=== PATIENT | female | born 1935 | race Asian ===

== ENCOUNTER 2016-11-06 09:31 | Outpatient (CLI) | payer OTHER ==
[~2016-11-06 09:31] MED LIST: AMLO5TAB PO; ASA LO-DOSE81 MG PO; ASCO500T18 PO; CALCIUM + D PO; DEMADEX20 MG PO; DIAZ2TAB PO; DICY20TA34 PO; FLUT0.05 NAS; LIBRAX1 CAP PO; MAGNESIUM1 TAB PO; MICARDIS H80 MG/25 M PO; MULTIVITAMI2 PO; NEXIUM40 M1 PO; NITR0.4S2 SL; POTASSIMIN75 MG PO; TIMOPTIC0.5 % OP; TIZA4TAB5 PO; VYTORIN1 TA2 PO; XALATAN0.005 % OP; [UNRECOGNIZED DRUG - CODE] PO; [UNRECOGNIZED DRUG - CODE] PO; [UNRECOGNIZED DRUG - OTHER] OR
== END 2016-11-06 19:11 | disposition home or self-care (01) ==
LOC: MAMMO 09:31
DX: Z12.31 Encounter for screening mammogram for malignant neoplasm of breast (principal)
CPT/HCPCS: G0202-TC

== ENCOUNTER 2016-11-16 11:13 | Outpatient (CLI) | payer OTHER ==
[2016-11-16 12:29] LABS: PLATELET COUNT 141 K/uL (152-353)
[2016-11-16 13:02] LABS: POTASSIUM 3.8 mmol/L (3.6-5.2); SODIUM 140 mmol/L (136-145)
== END 2016-11-16 20:50 | disposition home or self-care (01) ==
LOC: RAD 11:13
PROVIDERS: Family Medicine
DX: R05 Cough (principal); R07.9 Chest pain, unspecified; Z85.79 Personal history of other malignant neoplasms of lymphoid, hematopoietic and related tissues; D61.818 Other pancytopenia; K21.9 Gastro-esophageal reflux disease without esophagitis; N18.9 Chronic kidney disease, unspecified; Z79.899 Other long term (current) drug therapy
CPT/HCPCS: 36415; 80053; 81000; 82306; 82550; 83735; 84439; 84443; 84484; 85027; 93005

== ENCOUNTER 2016-12-17 16:01 | Inpatient (IN) | payer OTHER, BC ==
[~2016-12-17] VITALS: Ht 152.4 cm; Wt 79.8 kg
[2016-12-17 18:03] VITALS: BP 149/67; TEMP 102; Ht 152.4 cm; Wt 79.8 kg
[2016-12-17 18:05] LABS: PLATELET COUNT 117 K/uL (152-353)
--- NOTE | 2016-12-17 19:40 | NUR ---
1900 PT ALERT AND ORIENTED X 3. WHILE DOING ADMISSION PT SEEMS UNCERTAIN CONERNING HOME MEDS AND ALLERGIES. SPOKE WITH CATINA'S AND FAMILY CONCERNING ALLERGIES. MD INFORMED FAMILY INFORMED. PER FAMILY THEY HAVE NOTICED PT SLIGHTY CONFUSED OR "SLOWER THAN NORMAL" OVER LAST 3 DAYS
[2016-12-17 20:10] VITALS: BP 131/72; TEMP 98.7
[2016-12-18 00:25] VITALS: BP 140/72; TEMP 97.4
[2016-12-18] MEDS ORDERED: BISOPROL FUM10 MG PO (01:06)
[2016-12-18] MEDS ORDERED: [UNRECOGNIZED DRUG - OTHER] OR (01:25)
[2016-12-18] MEDS ORDERED: MAGNESIUM200 MG OR ×2 (01:30→01:32)
[2016-12-18] MEDS ORDERED: CETIRIZINE10 MG PO (01:43)
[2016-12-18] MEDS ORDERED: CARAFATE1 GM PO (01:47)
[2016-12-18 04:00] VITALS: BP 134/70; TEMP 97.4
--- NOTE | 2016-12-18 05:31 | NUR ---
12/18/16 0593 OUT OF BED TO RESTROOM GAIT STEADY BUT PT IS WEAK.ASSISTED TO BED PER PCT.CC
[2016-12-18 06:05] LABS: PLATELET COUNT 111 K/uL (152-353)
[2016-12-18 06:26] LABS: POTASSIUM 3.5 mmol/L (3.6-5.2)
[2016-12-18 07:25] VITALS: BP 156/83; TEMP 97.5
[2016-12-18 12:00] VITALS: BP 147/72; TEMP 97.7
[2016-12-18 15:42] VITALS: BP 149/82; TEMP 97.5
[2016-12-18 20:00] VITALS: BP 126/60; TEMP 98
[2016-12-19] VITALS: BP 141/71; TEMP 97.8
[2016-12-19 04:00] VITALS: BP 132/65; TEMP 98.2
[2016-12-19 06:13] LABS: PLATELET COUNT 118 K/uL (152-353)
[2016-12-19 06:21] LABS: POTASSIUM 3.4 mmol/L (3.6-5.2)
[2016-12-19 07:54] VITALS: BP 125/66; TEMP 98.6
[2016-12-19 12:00] VITALS: BP 132/71; TEMP 97.8
[2016-12-19 16:00] VITALS: BP 132/71; TEMP 97.8
[2016-12-19 19:54] VITALS: BP 145/67; TEMP 98.5
[2016-12-20] VITALS (7 sets, daily range): BP systolic 124–151; BP diastolic 58–74; TEMP 97.7–98.3
[2016-12-20 05:03] LABS: PLATELET COUNT 121 K/uL (152-353)
[2016-12-20 05:25] LABS: POTASSIUM 3.6 mmol/L (3.6-5.2)
--- NOTE | 2016-12-20 15:35 | NUR ---
1515-PT AMBULATING IN HALLWAY WITH VISITOR AT SIDE AND NAD.
[2016-12-21 04:00] VITALS: BP 136/63; TEMP 98
[2016-12-21 05:50] LABS: POTASSIUM 3.2 mmol/L (3.6-5.2)
[2016-12-21 06:06] LABS: PLATELET COUNT 118 K/uL (152-353)
[2016-12-21 08:00] VITALS: BP 147/81; TEMP 97.8
--- NOTE | 2016-12-21 13:15 | NUR ---
REVIEWED DISCHARGE INSTRUCTIONS WITH PATIENT AND FAMILY. IV REMOVED, BANDAID APPLIED. PATIENT VERBALIZED UNDERSTANDING OF ALL INSTRUCTIONS.
== END 2016-12-21 13:50 | disposition home or self-care (01) | DRG 178 ==
LOC: MED/SURG 16:01
PROVIDERS: Emergency Medicine; ADMIT Family Medicine
DX: J15.0 Pneumonia due to Klebsiella pneumoniae (principal); C90.00 Multiple myeloma not having achieved remission; I10 Essential (primary) hypertension; K21.9 Gastro-esophageal reflux disease without esophagitis; K58.8 Other irritable bowel syndrome
CPT/HCPCS: 36415; 80053; 81000; 83735; 85027; 87040; 87070; 87077; 87185; 87186; 87205; 93005; 94640; 94664; 94760; 96366; 96367; 96372; J0744; J1650; J1956; J2920

== ENCOUNTER 2017-05-09 17:36 | Outpatient (CLI) | payer OTHER, BC ==
[~2017-05-09 17:36] MED LIST changes: +BISOPROL FUM10 MG PO; +CARAFATE1 GM PO; +CETIRIZINE10 MG PO; +MAGNESIUM200 MG OR; +[UNRECOGNIZED DRUG - OTHER] OR
== END 2017-05-09 18:40 | disposition home or self-care (01) ==
LOC: LAB 17:36
DX: N39.0 Urinary tract infection, site not specified (principal); R31.9 Hematuria, unspecified
CPT/HCPCS: 81000; 87088

== ENCOUNTER 2017-05-17 08:31 | Outpatient (CLI) | payer OTHER, BC | END 2017-05-17 09:45 | disposition home or self-care (01) | LOC: CT 08:31 | DX: R22.1 Localized swelling, mass and lump, neck (principal) | CPT/HCPCS: 36415; 82565; 84520; Q9963 ==

== ENCOUNTER 2017-06-12 08:50 | Outpatient (CLI) | payer OTHER, BC ==
[2017-06-12 09:15] LABS: PLATELET COUNT 125 K/uL (152-353)
== END 2017-06-12 19:50 | disposition home or self-care (01) ==
LOC: LABW 08:50
PROVIDERS: Dermatology
DX: Z79.899 Other long term (current) drug therapy (principal); Z51.81 Encounter for therapeutic drug level monitoring
CPT/HCPCS: 36415; 80076; 82465; 84478; 85027

== ENCOUNTER 2017-06-24 11:27 | Outpatient (CLI) | payer OTHER, BC ==
[2017-06-24 12:22] LABS: PLATELET COUNT 172 K/uL (152-353)
[2017-06-24 12:49] LABS: POTASSIUM 3.9 mmol/L (3.6-5.2)
== END 2017-06-24 13:00 | disposition home or self-care (01) ==
LOC: LABW 11:27
PROVIDERS: Family Medicine
DX: I10 Essential (primary) hypertension (principal); E78.4 Other hyperlipidemia; Z85.79 Personal history of other malignant neoplasms of lymphoid, hematopoietic and related tissues
CPT/HCPCS: 36415; 80053; 85027; 93005

== ENCOUNTER 2017-11-18 10:15 | Outpatient (CLI) | payer OTHER | END 2017-11-18 19:40 | disposition home or self-care (01) | LOC: MAMMO 10:15 | DX: Z12.31 Encounter for screening mammogram for malignant neoplasm of breast (principal) ==

== ENCOUNTER 2017-11-27 12:11 | Outpatient (CLI) | payer OTHER | END 2017-11-28 04:42 | disposition home or self-care (01) | LOC: LABW 12:11 | DX: J02.9 Acute pharyngitis, unspecified (principal) | CPT/HCPCS: 87804 ==

== ENCOUNTER 2017-12-05 12:10 | Emergency (ER) | payer OTHER ==
[~2017-12-05] VITALS: Ht 162.6 cm; Wt 81.6 kg
[2017-12-05 13:02] LABS: PLATELET COUNT 212 K/uL (152-353)
[2017-12-05 13:08] LABS: POTASSIUM 3.5 mmol/L (3.6-5.2); SODIUM 139 mmol/L (136-145)
[2017-12-05 14:00] VITALS: BP 123/60; TEMP 98
== END 2017-12-05 14:00 | disposition home or self-care (01) ==
LOC: ED 12:10
PROVIDERS: Family Medicine
DX: R07.89 Other chest pain (principal); I16.0 Hypertensive urgency
CPT/HCPCS: 36415; 80053; 84484; 85027; 93005; 96365; 96375; 99284; J1170; J2405

== ENCOUNTER 2017-12-16 11:37 | Emergency (ER) | payer OTHER ==
[~2017-12-16] VITALS: Ht 162.6 cm; Wt 81.6 kg
[2017-12-16 11:45] VITALS: TEMP 98.4
[2017-12-16] MEDS ORDERED: ELIQUIS5 MG OR (12:03)
[2017-12-16 12:59] LABS: PLATELET COUNT 149 K/uL (152-353)
[2017-12-16 13:06] LABS: POTASSIUM 3.5 mmol/L (3.6-5.2)
[2017-12-16 14:03] VITALS: BP 138/64
== END 2017-12-16 14:03 | disposition home or self-care (01) ==
LOC: ED 11:37
PROVIDERS: Family Medicine
DX: M25.461 Effusion, right knee (principal); M17.11 Unilateral primary osteoarthritis, right knee
CPT/HCPCS: 36415; 80053; 85027; 96372; 99283; J1885

== ENCOUNTER 2018-01-21 02:42 | Emergency (ER) | payer OTHER ==
[~2018-01-21] VITALS: Ht 162.6 cm; Wt 80.7 kg
[~2018-01-21 02:42] MED LIST changes: +ELIQUIS5 MG OR
[2018-01-21] MEDS ORDERED: TIMOPTIC OCU0.5 % OP (03:21)
[2018-01-21] MEDS ORDERED: XALATAN0.005 % OP (03:21)
[2018-01-21] MEDS ORDERED: ESOMEPRAZOLE MA40 MG PO (03:22)
[2018-01-21] MEDS ORDERED: ENTECAVIR0.5 MG PO (03:23)
[2018-01-21] MEDS ORDERED: ACYCLOVIR800 MG PO (03:23)
[2018-01-21] MEDS ORDERED: OXYCODONE HCL E10 MG PO (03:24)
[2018-01-21] MEDS ORDERED: REVLIMID PO (03:28)
[2018-01-21] MEDS ORDERED: PREMARIN VAG (03:30)
[2018-01-21] MEDS ORDERED: VITAMIN D1000 UNIT PO (03:30)
[2018-01-21] MEDS ORDERED: [UNRECOGNIZED DRUG - OTHER] PO (03:31)
[2018-01-21] MEDS ORDERED: [UNRECOGNIZED DRUG - OTHER] PO (03:33)
[2018-01-21] MEDS ORDERED: VITAMIN D3400 UNI2 PO (03:33)
[2018-01-21] MEDS ORDERED: STOOL SOFTNR100 MG PO (03:34)
[2018-01-21] MEDS ORDERED: B12 FAST DIS5000 MCG PO (03:34)
[2018-01-21 05:01] VITALS: BP 126/57; TEMP 98.3
== END 2018-01-21 05:04 | disposition short-term general hospital (02) ==
LOC: ED 02:42
DX: T82.128A Displacement of other cardiac electronic device, initial encounter (principal)
CPT/HCPCS: 36415; 99284

== ENCOUNTER 2018-02-04 09:35 | Outpatient (CLI) | payer OTHER ==
[~2018-02-04 09:35] MED LIST changes: +ACYCLOVIR800 MG PO; +B12 FAST DIS5000 MCG PO; +ENTECAVIR0.5 MG PO; +ESOMEPRAZOLE MA40 MG PO; +OXYCODONE HCL E10 MG PO; +PREMARIN VAG; +REVLIMID PO; +STOOL SOFTNR100 MG PO; +TIMOPTIC OCU0.5 % OP; +VITAMIN D1000 UNIT PO; +VITAMIN D3400 UNI2 PO; +[UNRECOGNIZED DRUG - OTHER] PO; +[UNRECOGNIZED DRUG - OTHER] PO
[2018-02-04 10:24] LABS: POTASSIUM 3.4 mmol/L (3.6-5.2)
== END 2018-02-04 21:56 | disposition home or self-care (01) ==
LOC: LABW 09:35
PROVIDERS: Specialist
DX: I10 Essential (primary) hypertension (principal); E78.4 Other hyperlipidemia; I49.5 Sick sinus syndrome; Z95.0 Presence of cardiac pacemaker; Z79.899 Other long term (current) drug therapy; Z51.81 Encounter for therapeutic drug level monitoring
CPT/HCPCS: 36415; 80053; 80061

== ENCOUNTER 2018-05-09 08:47 | Outpatient (CLI) | payer OTHER | END 2018-05-09 22:02 | disposition home or self-care (01) | LOC: CT 08:47 | DX: R10.2 Pelvic and perineal pain (principal) | CPT/HCPCS: 36415; 82565; 84520; Q9963 ==

== ENCOUNTER 2018-07-12 00:29 | Emergency (ER) | payer OTHER ==
[~2018-07-12] VITALS: Ht 162.6 cm; Wt 79.4 kg
[2018-07-12 01:43] VITALS: BP 158/43; TEMP 98.1
== END 2018-07-12 01:43 | disposition home or self-care (01) ==
LOC: ED 00:29
DX: S00.03XA Contusion of scalp, initial encounter (principal); W22.8XXA Striking against or struck by other objects, initial encounter; Y93.89 Activity, other specified; Y92.018 Other place in single-family (private) house as the place of occurrence of the external cause
CPT/HCPCS: 99283

== ENCOUNTER 2018-09-12 09:53 | Outpatient (CLI) | payer OTHER | END 2018-09-12 19:16 | disposition home or self-care (01) | LOC: LABW 09:53 | DX: C90.01 Multiple myeloma in remission (principal) | CPT/HCPCS: 36415; 80076; 87517 ==

== ENCOUNTER 2018-10-15 09:51 | Outpatient (CLI) | payer OTHER | END 2018-10-15 19:21 | disposition home or self-care (01) | LOC: LABW 09:51 | PROVIDERS: Family Medicine | DX: Z13.1 Encounter for screening for diabetes mellitus (principal); Z79.899 Other long term (current) drug therapy | CPT/HCPCS: 36415; 80061; 83036 ==

== ENCOUNTER 2018-11-21 08:46 | Outpatient (CLI) | payer OTHER | END 2018-11-21 18:56 | disposition home or self-care (01) | LOC: MAMMO 08:46 | DX: Z12.31 Encounter for screening mammogram for malignant neoplasm of breast (principal) ==

== ENCOUNTER 2018-12-11 16:09 | Outpatient (CLI) | payer OTHER | END 2018-12-11 20:44 | disposition home or self-care (01) | LOC: LABW 16:09 | DX: N39.0 Urinary tract infection, site not specified (principal) | CPT/HCPCS: 81000; 87088 ==

== ENCOUNTER 2019-05-11 09:57 | Outpatient (CLI) | payer OTHER ==
[2019-05-11 10:57] LABS: POTASSIUM 4.3 mmol/L (3.6-5.2)
== END 2019-05-11 22:46 | disposition home or self-care (01) ==
LOC: LABW 09:57
PROVIDERS: Specialist
DX: I10 Essential (primary) hypertension (principal); E78.49 Other hyperlipidemia; I48.91 Unspecified atrial fibrillation; Z95.0 Presence of cardiac pacemaker; Z79.899 Other long term (current) drug therapy
CPT/HCPCS: 36415; 80053; 80061; 83735

== ENCOUNTER 2019-05-19 08:32 | Outpatient (CLI) | payer OTHER | END 2019-05-19 22:25 | disposition home or self-care (01) | LOC: RAD 08:32 | DX: M54.5 Low back pain (principal); R10.2 Pelvic and perineal pain | CPT/HCPCS: 81000 ==

== ENCOUNTER 2019-06-12 12:31 | Outpatient (CLI) | payer OTHER | END 2019-06-12 23:59 | disposition home or self-care (01) | LOC: RAD 12:31 | DX: M25.512 Pain in left shoulder (principal) ==

== ENCOUNTER 2019-07-13 20:55 | Emergency (ER) | payer OTHER | END 2019-07-13 21:01 | disposition home or self-care (01) | LOC: ED 20:55 | DX: S09.8XXA Other specified injuries of head, initial encounter (principal); S00.03XA Contusion of scalp, initial encounter; W20.8XXA Other cause of strike by thrown, projected or falling object, initial encounter; Y93.E9 Activity, other interior property and clothing maintenance; Y92.098 Other place in other non-institutional residence as the place of occurrence of the external cause | CPT/HCPCS: 99281 ==

== ENCOUNTER 2019-08-10 | Emergency (ER) | payer OTHER ==
[~2019-08-10] VITALS: Ht 162.6 cm; Wt 81.6 kg
[2019-08-10 01:10] VITALS: BP 167/63; TEMP 97.5
== END 2019-08-10 01:10 | disposition home or self-care (01) ==
LOC: ED
DX: H65.191 Other acute nonsuppurative otitis media, right ear (principal); H92.01 Otalgia, right ear; Z98.890 Other specified postprocedural states
CPT/HCPCS: 93005; 96372; 99283; J0696; J1885

== ENCOUNTER 2019-09-30 17:11 | Outpatient (CLI) | payer OTHER | END 2019-09-30 19:31 | disposition home or self-care (01) | LOC: RAD 17:11 | DX: J02.9 Acute pharyngitis, unspecified (principal); R05 Cough; R07.81 Pleurodynia ==

== ENCOUNTER 2019-10-15 12:34 | Emergency (ER) | payer OTHER ==
[~2019-10-15] VITALS: Ht 162.6 cm; Wt 81.6 kg
[2019-10-15 12:46] VITALS: TEMP 97.7
[2019-10-15 13:52] VITALS: BP 122/50
== END 2019-10-15 13:52 | disposition home or self-care (01) ==
LOC: ED 12:34
DX: J06.9 Acute upper respiratory infection, unspecified (principal)
CPT/HCPCS: 99282

== ENCOUNTER 2019-11-27 10:16 | Outpatient (CLI) | payer OTHER | END 2019-11-27 19:39 | disposition home or self-care (01) | LOC: MAMMO 10:16 | DX: Z12.31 Encounter for screening mammogram for malignant neoplasm of breast (principal) ==

== ENCOUNTER 2020-01-11 11:19 | Emergency (ER) | payer OTHER ==
[~2020-01-11] VITALS: Ht 162.6 cm; Wt 81.6 kg
[2020-01-11 11:19] VITALS: TEMP 98.4
[~2020-01-11 11:19] MED LIST changes: -AMLO5TAB PO; +AMLODIPINE BESYLATE PO
[2020-01-11 12:19] LABS: PLATELET COUNT 137 K/uL (152-353)
[2020-01-11 12:30] LABS: POTASSIUM 4.1 mmol/L (3.6-5.2); SODIUM 141 mmol/L (136-145)
[2020-01-11 15:20] VITALS: BP 1335/59
== END 2020-01-11 16:00 | disposition home or self-care (01) ==
LOC: ED 11:19
PROVIDERS: Emergency Medicine
DX: R07.89 Other chest pain (principal); Z95.0 Presence of cardiac pacemaker
CPT/HCPCS: 80053; 82150; 83690; 83880; 84484; 85027; 93005; 99284

== ENCOUNTER 2020-03-29 14:48 | Outpatient (CLI) | payer OTHER | END 2020-03-29 19:14 | disposition home or self-care (01) | LOC: RESP 14:48 | DX: Z01.818 Encounter for other preprocedural examination (principal) | CPT/HCPCS: 93005 ==

== ENCOUNTER 2020-05-05 12:32 | Outpatient (CLI) | payer OTHER ==
[2020-05-05 14:36] LABS: POTASSIUM 4.4 mmol/L (3.6-5.2)
== END 2020-05-05 21:53 | disposition home or self-care (01) ==
LOC: LABW 12:32
PROVIDERS: Family Medicine
DX: M25.519 Pain in unspecified shoulder (principal); N18.3 Chronic kidney disease, stage 3 (moderate); E83.42 Hypomagnesemia
CPT/HCPCS: 36415; 80053; 83735

== ENCOUNTER 2020-05-18 10:58 | Outpatient (CLI) | payer OTHER ==
[2020-05-18 11:41] LABS: POTASSIUM 4.6 mmol/L (3.6-5.2)
== END 2020-05-18 19:04 | disposition home or self-care (01) ==
LOC: LABW 10:58
PROVIDERS: Family Medicine
DX: Z01.818 Encounter for other preprocedural examination (principal); I10 Essential (primary) hypertension; R42 Dizziness and giddiness
CPT/HCPCS: 36415; 80048

== ENCOUNTER 2020-11-24 15:49 | Outpatient (CLI) | payer OTHER | END 2020-11-24 23:50 | disposition home or self-care (01) | LOC: US 15:49 | PROVIDERS: ATTEND Family Medicine | DX: M79.604 Pain in right leg (principal) ==

== ENCOUNTER 2021-01-02 09:35 | Outpatient (CLI) | payer OTHER ==
[2021-01-02 09:57] LABS: PLATELET COUNT 208 K/uL (152-353)
[2021-01-02 10:00] LABS: POTASSIUM 3.8 mmol/L (3.6-5.2)
== END 2021-01-02 19:19 | disposition home or self-care (01) ==
LOC: LABW 09:35
PROVIDERS: ATTEND Internal Medicine Hematology & Oncology
DX: C90.00 Multiple myeloma not having achieved remission (principal)
CPT/HCPCS: 36415; 80053; 83735; 85027

== ENCOUNTER 2021-01-06 09:40 | Outpatient (CLI) | payer OTHER | END 2021-01-06 21:37 | disposition home or self-care (01) | LOC: MAMMO 09:40 | PROVIDERS: ATTEND Obstetrics & Gynecology | DX: Z12.31 Encounter for screening mammogram for malignant neoplasm of breast (principal) ==

== ENCOUNTER 2021-01-16 09:35 | Outpatient (CLI) | payer OTHER ==
[2021-01-16 10:05] LABS: PLATELET COUNT 166 K/uL (152-353)
== END 2021-01-16 20:45 | disposition home or self-care (01) ==
LOC: LABW 09:35
PROVIDERS: ATTEND Internal Medicine Hematology & Oncology
DX: C90.00 Multiple myeloma not having achieved remission (principal); N18.32 Chronic kidney disease, stage 3b; I12.9 Hypertensive chronic kidney disease with stage 1 through stage 4 chronic kidney disease, or unspecified chronic kidney disease; D63.1 Anemia in chronic kidney disease; N25.81 Secondary hyperparathyroidism of renal origin; E78.49 Other hyperlipidemia; K21.9 Gastro-esophageal reflux disease without esophagitis; H40.9 Unspecified glaucoma; J30.9 Allergic rhinitis, unspecified; I25.10 Atherosclerotic heart disease of native coronary artery without angina pectoris; F41.9 Anxiety disorder, unspecified; M19.90 Unspecified osteoarthritis, unspecified site; M81.0 Age-related osteoporosis without current pathological fracture; I48.91 Unspecified atrial fibrillation; Z79.899 Other long term (current) drug therapy
CPT/HCPCS: 36415; 80053; 80061; 82306; 82728; 83540; 83735; 83970; 84100; 85027

== ENCOUNTER 2021-01-30 09:32 | Outpatient (CLI) | payer OTHER ==
[2021-01-30 09:46] LABS: PLATELET COUNT 158 K/uL (152-353)
[2021-01-30 10:00] LABS: POTASSIUM 4.1 mmol/L (3.6-5.2)
== END 2021-01-30 19:19 | disposition home or self-care (01) ==
LOC: LABW 09:32
PROVIDERS: ATTEND Internal Medicine Hematology & Oncology
DX: C90.00 Multiple myeloma not having achieved remission (principal)
CPT/HCPCS: 36415; 80053; 83735; 85027

== ENCOUNTER 2021-02-22 08:44 | Outpatient (CLI) | payer OTHER | END 2021-02-22 21:48 | disposition home or self-care (01) | LOC: CT 08:44 | PROVIDERS: ATTEND Internal Medicine Gastroenterology | DX: R10.84 Generalized abdominal pain (principal) ==

== ENCOUNTER 2021-02-27 08:48 | Outpatient (CLI) | payer OTHER ==
[2021-02-27 09:10] LABS: PLATELET COUNT 148 K/uL (152-353)
[2021-02-27 09:32] LABS: POTASSIUM 3.5 mmol/L (3.6-5.2)
== END 2021-02-27 19:14 | disposition home or self-care (01) ==
LOC: LABW 08:48
PROVIDERS: ATTEND Internal Medicine Hematology & Oncology
DX: C90.00 Multiple myeloma not having achieved remission (principal)
CPT/HCPCS: 36415; 80053; 83735; 85027

== ENCOUNTER 2021-03-20 09:40 | Outpatient (CLI) | payer OTHER ==
[2021-03-20 09:59] LABS: PLATELET COUNT 146 K/uL (152-353)
[2021-03-20 10:04] LABS: POTASSIUM 4.7 mmol/L (3.6-5.2)
== END 2021-03-20 20:57 | disposition home or self-care (01) ==
LOC: LABW 09:40
PROVIDERS: ATTEND Internal Medicine Hematology & Oncology
DX: C90.00 Multiple myeloma not having achieved remission (principal)
CPT/HCPCS: 36415; 80053; 83735; 85027

== ENCOUNTER 2021-03-27 08:09 | Outpatient (CLI) | payer OTHER ==
[2021-03-27 08:29] LABS: PLATELET COUNT 155 K/uL (152-353)
[2021-03-27 08:45] LABS: POTASSIUM 3.6 mmol/L (3.6-5.2)
== END 2021-03-27 18:59 | disposition home or self-care (01) ==
LOC: LABW 08:09
PROVIDERS: ATTEND Internal Medicine Hematology & Oncology
DX: C90.00 Multiple myeloma not having achieved remission (principal)
CPT/HCPCS: 36415; 80053; 83735; 85027

== ENCOUNTER 2021-04-03 17:02 | Outpatient (CLI) | payer OTHER | END 2021-04-03 21:53 | disposition home or self-care (01) | LOC: LABW 17:02 | PROVIDERS: ATTEND Internal Medicine Gastroenterology | DX: C90.00 Multiple myeloma not having achieved remission (principal) | CPT/HCPCS: 36415; 80076; 82105; 86317; 87340; 87517 ==

== ENCOUNTER 2021-05-22 11:41 | Outpatient (CLI) | payer OTHER ==
[2021-05-22 12:50] LABS: PLATELET COUNT 155 K/uL (152-353)
[2021-05-22 12:59] LABS: POTASSIUM 3.9 mmol/L (3.6-5.2)
== END 2021-05-22 21:03 | disposition home or self-care (01) ==
LOC: LABW 11:41
PROVIDERS: ATTEND Internal Medicine Hematology & Oncology
DX: C90.00 Multiple myeloma not having achieved remission (principal)
CPT/HCPCS: 36415; 80053; 83735; 85027

== ENCOUNTER 2021-05-29 16:52 | Observation (INO) | payer OTHER ==
[~2021-05-29] VITALS: Ht 162.6 cm; Wt 83.5 kg
[2021-05-29] MEDS ORDERED: ACYCLOVIR800 MG PO (17:27)
[2021-05-29] MEDS ORDERED: VIT C/BIOFLV1000 MG PO (17:29)
[2021-05-29] MEDS ORDERED: LUMITENE30 MG PO (17:31)
[2021-05-29 17:35] LABS: PLATELET COUNT 153 K/uL (152-353)
[2021-05-29] MEDS ORDERED: [UNRECOGNIZED DRUG - OTHER] PO (17:36)
[2021-05-29] MEDS ORDERED: ENTECAVIR0.5 MG PO (17:37)
[2021-05-29] MEDS ORDERED: OXYC10TA3 PO (17:40)
[2021-05-29] MEDS ORDERED: FURO20TA67 PO (17:45)
[2021-05-29] MEDS ORDERED: POTASSIU PO (17:45)
[2021-05-29] MEDS ORDERED: DEXAMETHASON4 MG PO (17:47)
[2021-05-29] MEDS ORDERED: CARAFATE1 GM PO (17:48)
[2021-05-29] MEDS ORDERED: CENTRUM SILVER PO (17:48)
[2021-05-29] MEDS ORDERED: CALCI21 PO (17:49)
[2021-05-29] MEDS ORDERED: MIRALAX17 GM/SCOO PO (17:50)
[2021-05-29] MEDS ORDERED: EYE HEALTH1 CAP PO (17:51)
[2021-05-29 17:55] LABS: POTASSIUM 3.8 mmol/L (3.6-5.2); SODIUM 141 mmol/L (136-145)
[2021-05-29 19:05] VITALS: BP 137/42; TEMP 98.5; Ht 162.6 cm; Wt 83.5 kg
[2021-05-29] MEDS ORDERED: METO50TA63 PO (19:23)
[2021-05-29] MEDS ORDERED: DICYCLOMINE HYD10 MG PO (19:24)
[2021-05-29 20:00] VITALS: BP 132/54; TEMP 97.7
[2021-05-30 00:13] VITALS: BP 145/59; TEMP 97.9
[2021-05-30] MEDS ORDERED: STOOL SOFTNR100 MG PO (02:53)
[2021-05-30 04:00] VITALS: BP 125/50; TEMP 98.2
[2021-05-30] MEDS ORDERED: OXYC5TAB24 PO (04:12)
--- NOTE | 2021-05-30 06:34 | NUR ---
Pt alert sitting up on couch at this time. No c/o pain/discomfort voiced. SL to RAC flushed without difficulty. called @ 0230 with new orders. New orders followed through. Pt rested through the night with no c/o. No s/s of distress. Call light in easy reach.
[2021-05-30 08:00] VITALS: BP 159/67; TEMP 97.8
[2021-05-30] MEDS ORDERED: RETIN-A0.05 % EX (09:32)
[2021-05-30] MEDS ORDERED: LINZESS72 MCG PO (09:35)
[2021-05-30 09:42] LABS: PLATELET COUNT 166 K/uL (152-353)
--- NOTE | 2021-05-30 09:44 | NUR ---
NOTIFIED PHD RACHEL THAT PT'S HOME MED BOTTLES ARE IN MED ROOM ON THE COUNTER FOR THEM TO VERIFY.
[2021-05-30 09:53] LABS: POTASSIUM 3.3 mmol/L (3.6-5.2)
[2021-05-30 12:00] VITALS: BP 148/59; TEMP 98.2
[2021-05-30 16:00] VITALS: BP 132/51; TEMP 98.4
[2021-05-30 20:00] VITALS: BP 111/49; TEMP 98.1
[2021-05-31 00:16] VITALS: BP 137/52; TEMP 97.7
[2021-05-31 04:21] VITALS: BP 140/53; TEMP 97.9
[2021-05-31 04:52] LABS: PLATELET COUNT 145 K/uL (152-353)
[2021-05-31 05:24] LABS: POTASSIUM 2.9 mmol/L (3.6-5.2)
--- NOTE | 2021-05-31 05:59 | NUR ---
Pt rested through the night with no c/o. No s/s of distress. No SOB observed. Call light in easy reach.
[2021-05-31 08:00] VITALS: BP 108/60
[2021-05-31 12:21] VITALS: BP 137/64; TEMP 98.1
== END 2021-05-31 19:39 | disposition home or self-care (01) ==
LOC: MED/SURG 16:52
PROVIDERS: ADMIT Family Medicine; ATTEND Family Medicine
DX: R07.89 Other chest pain (principal); R00.2 Palpitations; R60.0 Localized edema; E87.6 Hypokalemia; E83.42 Hypomagnesemia; C90.02 Multiple myeloma in relapse; Z95.0 Presence of cardiac pacemaker; M25.562 Pain in left knee; I12.9 Hypertensive chronic kidney disease with stage 1 through stage 4 chronic kidney disease, or unspecified chronic kidney disease; N18.30 Chronic kidney disease, stage 3 unspecified
CPT/HCPCS: 36415; 80053; 81000; 82550; 83735; 83880; 84100; 84439; 84443; 84484; 85027; 87635; 93005; 96365; 96374; 96375; 99220; G0378; G0379; J1940; J3480; U0003

== ENCOUNTER 2021-06-19 09:29 | Outpatient (CLI) | payer OTHER ==
[~2021-06-19 09:29] MED LIST changes: +CALCI21 PO; +CENTRUM SILVER PO; +DEXAMETHASON4 MG PO; +DICYCLOMINE HYD10 MG PO; +EYE HEALTH1 CAP PO; +FURO20TA67 PO; +LINZESS72 MCG PO; +LUMITENE30 MG PO; +METO50TA63 PO; +MIRALAX17 GM/SCOO PO; +OXYC10TA3 PO; +OXYC5TAB24 PO; +POTASSIU PO; +RETIN-A0.05 % EX; +VIT C/BIOFLV1000 MG PO; +[UNRECOGNIZED DRUG - OTHER] PO
[2021-06-19 10:02] LABS: PLATELET COUNT 186 K/uL (152-353)
[2021-06-19 10:14] LABS: POTASSIUM 3.6 mmol/L (3.6-5.2)
== END 2021-06-19 21:44 | disposition home or self-care (01) ==
LOC: LABW 09:29
PROVIDERS: ATTEND Internal Medicine Hematology & Oncology
DX: C90.00 Multiple myeloma not having achieved remission (principal)
CPT/HCPCS: 36415; 80053; 83735; 85027

== ENCOUNTER 2021-07-17 12:43 | Outpatient (CLI) | payer OTHER ==
[2021-07-17 13:05] LABS: PLATELET COUNT 159 K/uL (152-353)
[2021-07-17 13:07] LABS: POTASSIUM 3.6 mmol/L (3.6-5.2)
== END 2021-07-17 20:15 | disposition home or self-care (01) ==
LOC: LABW 12:43
PROVIDERS: ATTEND Internal Medicine Hematology & Oncology
DX: C90.00 Multiple myeloma not having achieved remission (principal)
CPT/HCPCS: 36415; 80053; 83735; 85027

== ENCOUNTER 2021-07-31 12:52 | Outpatient (CLI) | payer OTHER | END 2021-07-31 21:09 | disposition home or self-care (01) | LOC: RAD 12:52 | PROVIDERS: ATTEND Family Medicine | DX: M54.2 Cervicalgia (principal) ==

== ENCOUNTER 2021-08-16 08:58 | Outpatient (CLI) | payer OTHER ==
[2021-08-16 09:21] LABS: PLATELET COUNT 185 K/uL (152-353)
[2021-08-16 09:30] LABS: POTASSIUM 4.1 mmol/L (3.6-5.2)
== END 2021-08-16 21:50 | disposition home or self-care (01) ==
LOC: LABW 08:58
PROVIDERS: ATTEND Internal Medicine Hematology & Oncology
DX: C90.00 Multiple myeloma not having achieved remission (principal)
CPT/HCPCS: 36415; 80053; 83735; 85027

== ENCOUNTER 2021-09-13 08:35 | Outpatient (CLI) | payer OTHER ==
[2021-09-13 08:51] LABS: PLATELET COUNT 188 K/uL (152-353)
[2021-09-13 09:06] LABS: POTASSIUM 4.2 mmol/L (3.6-5.2)
== END 2021-09-13 20:31 | disposition home or self-care (01) ==
LOC: LABW 08:35
PROVIDERS: ATTEND Internal Medicine Hematology & Oncology
DX: C90.00 Multiple myeloma not having achieved remission (principal)
CPT/HCPCS: 36415; 80053; 83735; 85027

== ENCOUNTER 2022-01-03 12:00 | Outpatient (CLI) | payer OTHER ==
[2022-01-03 12:31] LABS: PLATELET COUNT 150 K/uL (152-353)
[2022-01-03 13:06] LABS: POTASSIUM 4.1 mmol/L (3.6-5.2)
== END 2022-01-03 19:39 | disposition home or self-care (01) ==
LOC: LABW 12:00
PROVIDERS: ATTEND Family Medicine
DX: Z85.79 Personal history of other malignant neoplasms of lymphoid, hematopoietic and related tissues (principal); Z78.0 Asymptomatic menopausal state; N64.9 Disorder of breast, unspecified; C90.00 Multiple myeloma not having achieved remission
CPT/HCPCS: 36415; 80053; 83735; 85027; G0279

== ENCOUNTER 2022-02-10 15:49 | Inpatient (IN) | payer OTHER ==
[~2022-02-10] VITALS: Ht 152.4 cm; Wt 85.0 kg
[2022-02-10] VITALS (8 sets, daily range): BP systolic 133–170; BP diastolic 53–71; TEMP 100.4–101.1
[~2022-02-10 15:49] MED LIST changes: +MAGN400T4 PO; +METO100T37 PO; -METO50TA63 PO
[2022-02-10 17:02] LABS: PLATELET COUNT 166 K/uL (152-353)
[2022-02-10 17:08] LABS: POTASSIUM 3.2 mmol/L (3.6-5.2)
[2022-02-10 17:13] LABS: PARTIAL THROMBOPLASTIN TIME 22.7 SECONDS (24.5-33.6)
[2022-02-11 03:49] VITALS: BP 159/63; TEMP 100.3
[2022-02-11 06:47] VITALS: BP 139/51; TEMP 100.2; Ht 152.4 cm; Wt 85.0 kg
[2022-02-11 08:00] VITALS: BP 14/48; BP 146/48; TEMP 100.1
[2022-02-11 08:10] LABS: PLATELET COUNT 163 K/uL (152-353)
[2022-02-11 12:00] VITALS: BP 143/54; TEMP 100
[2022-02-11 16:00] VITALS: BP 144/42; TEMP 99
[2022-02-11] MEDS ORDERED: POMALYST PO (16:27)
[2022-02-11] MEDS ORDERED: POTASSIUM CHLORIDE PO (16:39)
[2022-02-11] MEDS ORDERED: DIFLORASONE TOP (16:43)
[2022-02-11] MEDS ORDERED: DIAZ5TAB20 PO (18:58)
[2022-02-11] MEDS ORDERED: TRAMADOL HYDROC50 MG PO (18:59)
[2022-02-11] MEDS ORDERED: DICYCLOMINE HYD10 MG PO (19:07)
[2022-02-11 20:00] VITALS: BP 122/68; TEMP 99.7
[2022-02-12] VITALS (9 sets, daily range): BP systolic 102–133; BP diastolic 54–69; TEMP 99.1–101.1
[2022-02-12 05:10] LABS: PLATELET COUNT 151 K/uL (152-353)
[2022-02-12 05:28] LABS: POTASSIUM 3.7 mmol/L (3.6-5.2)
[2022-02-13] VITALS (7 sets, daily range): BP systolic 122–152; BP diastolic 51–72; TEMP 96.1–99
[2022-02-13 05:28] LABS: PLATELET COUNT 156 K/uL (152-353)
[2022-02-13 05:39] LABS: POTASSIUM 3.7 mmol/L (3.6-5.2)
[2022-02-14 04:10] VITALS: BP 144/62; TEMP 97.5
[2022-02-14 05:19] LABS: PLATELET COUNT 145 K/uL (152-353)
[2022-02-14 05:35] LABS: POTASSIUM 3.2 mmol/L (3.6-5.2)
[2022-02-14 08:00] VITALS: BP 142/50; TEMP 98.7
[2022-02-14 12:00] VITALS: BP 136/93; TEMP 98.7
[2022-02-14 16:11] VITALS: BP 136/56; TEMP 99.4
[2022-02-14 20:00] VITALS: BP 110/59; TEMP 99.4
[2022-02-15] VITALS: BP 143/48; TEMP 98.8
[2022-02-15 04:00] VITALS: BP 155/59; TEMP 98.4
[2022-02-15 04:41] LABS: PLATELET COUNT 143 K/uL (152-353)
[2022-02-15 04:51] LABS: POTASSIUM 3.3 mmol/L (3.6-5.2)
[2022-02-15 08:00] VITALS: BP 146/60; TEMP 98.2
[2022-02-15 12:00] VITALS: BP 158/94; TEMP 98.7
[2022-02-15 16:00] VITALS: BP 129/60; TEMP 99
[2022-02-15 20:00] VITALS: BP 135/63; TEMP 98.6
[2022-02-16] VITALS: BP 140/65; TEMP 98.3
[2022-02-16 04:00] VITALS: BP 179/69; TEMP 97.9
[2022-02-16 05:09] LABS: PLATELET COUNT 178 K/uL (152-353)
[2022-02-16 05:37] LABS: POTASSIUM 4.7 mmol/L (3.6-5.2)
[2022-02-16 08:00] VITALS: BP 147/62; TEMP 98.5
[2022-02-16 11:58] VITALS: BP 141/60; TEMP 98.3
[2022-02-16] MEDS ORDERED: ZITHROMAX 250MG TAB PO (12:11)
[2022-02-16] MEDS ORDERED: DILT30TA24 PO (12:13)
[2022-02-16] MEDS ORDERED: LEVAQUIN 500MG TAB PO (12:14)
== END 2022-02-16 14:40 | disposition swing bed (61) | DRG 194 ==
LOC: ED 15:57 → MED/SURG 18:50
PROVIDERS: Family Medicine; Internal Medicine; ADMIT Internal Medicine Endocrinology, Diabetes & Metabolism; ATTEND Internal Medicine Endocrinology, Diabetes & Metabolism
DX: J18.0 Bronchopneumonia, unspecified organism (principal); C90.01 Multiple myeloma in remission; J81.1 Chronic pulmonary edema; I13.0 Hypertensive heart and chronic kidney disease with heart failure and stage 1 through stage 4 chronic kidney disease, or unspecified chronic kidney disease; R00.0 Tachycardia, unspecified; K21.9 Gastro-esophageal reflux disease without esophagitis; E87.6 Hypokalemia; R53.1 Weakness; R62.7 Adult failure to thrive; R26.89 Other abnormalities of gait and mobility; M81.8 Other osteoporosis without current pathological fracture; M15.8 Other polyosteoarthritis; N18.30 Chronic kidney disease, stage 3 unspecified; I50.9 Heart failure, unspecified
CPT/HCPCS: 36415; 51702; 80048; 80053; 80202; 80307; 81000; 82550; 83880; 84443; 84484; 85027; 85610; 85730; 87040; 87635; 93005; 94640; 94664; 94667; 94668; 94760; 96360; 96361; 96365; 96367; 96374; 96375; 99284; J0132; J0456; J0696; J1160; J1940; J3370; J3490; U0003

== ENCOUNTER 2022-02-16 15:08 | Inpatient (IN) | payer OTHER ==
[~2022-02-16] VITALS: Ht 152.4 cm; Wt 83.6 kg
[~2022-02-16 15:08] MED LIST changes: +DIAZ5TAB20 PO; +DIFLORASONE TOP; +DILT30TA24 PO; +LEVAQUIN 500MG TAB PO; +POMALYST PO; +POTASSIUM CHLORIDE PO; +TRAMADOL HYDROC50 MG PO; +ZITHROMAX 250MG TAB PO
[2022-02-16 16:20] VITALS: BP 141/60; TEMP 98.3; Ht 152.4 cm; Wt 83.6 kg
[2022-02-16 19:58] VITALS: BP 160/58; TEMP 98.1
[2022-02-17 07:59] VITALS: BP 130/89; TEMP 98.5
[2022-02-17 19:40] VITALS: BP 141/57; TEMP 98.5
[2022-02-18 08:28] VITALS: BP 135/49; TEMP 97.7
[2022-02-18 20:11] VITALS: BP 154/52; TEMP 98.5
[2022-02-19 08:00] VITALS: BP 126/49; TEMP 98.3
[2022-02-19 20:00] VITALS: BP 146/51; TEMP 99
[2022-02-20] MEDS ORDERED: DILT30TA24 PO (18:40)
[2022-02-20] MEDS ORDERED: FLUO10CA2 PO (18:41)
[2022-02-20 19:53] VITALS: BP 149/72; TEMP 98.8
[2022-02-21 08:36] VITALS: BP 143/53; TEMP 98.2
== END 2022-02-21 13:00 | disposition home health service (06) | DRG 194 ==
LOC: MED/SURG 15:08
PROVIDERS: ADMIT Internal Medicine; ATTEND Internal Medicine
DX: J18.0 Bronchopneumonia, unspecified organism (principal); I50.9 Heart failure, unspecified; T82.120D Displacement of cardiac electrode, subsequent encounter; N18.9 Chronic kidney disease, unspecified; R26.81 Unsteadiness on feet; R26.2 Difficulty in walking, not elsewhere classified; M62.81 Muscle weakness (generalized); Z74.1 Need for assistance with personal care; D64.9 Anemia, unspecified; C90.00 Multiple myeloma not having achieved remission; I10 Essential (primary) hypertension; K58.9 Irritable bowel syndrome, unspecified; F33.8 Other recurrent depressive disorders
CPT/HCPCS: 87081; 94664; 94667; 94760; J1940

== ENCOUNTER 2022-03-09 09:28 | Outpatient (CLI) | payer OTHER ==
[~2022-03-09 09:28] MED LIST changes: +FLUO10CA2 PO
== END 2022-03-09 20:32 | disposition home or self-care (01) ==
LOC: CT 09:28
PROVIDERS: ATTEND Internal Medicine Hematology & Oncology
DX: M81.0 Age-related osteoporosis without current pathological fracture (principal); Z12.31 Encounter for screening mammogram for malignant neoplasm of breast; C90.00 Multiple myeloma not having achieved remission

== ENCOUNTER 2022-05-18 11:07 | Outpatient (CLI) | payer OTHER ==
[2022-05-18 11:41] LABS: POTASSIUM 4.1 mmol/L (3.6-5.2)
[2022-05-18 12:02] LABS: PLATELET COUNT 180 K/uL (152-353)
== END 2022-05-18 19:04 | disposition home or self-care (01) ==
LOC: LABW 11:07
PROVIDERS: ATTEND Family Medicine
DX: R60.0 Localized edema (principal); N18.30 Chronic kidney disease, stage 3 unspecified; E83.42 Hypomagnesemia; E78.2 Mixed hyperlipidemia; R73.9 Hyperglycemia, unspecified; R63.5 Abnormal weight gain; R06.09 Other forms of dyspnea
CPT/HCPCS: 36415; 80053; 80061; 81002; 83036; 83735; 83880; 84100; 84439; 84443; 84550; 85027

== ENCOUNTER 2022-05-21 16:12 | Inpatient (IN) | payer OTHER ==
[~2022-05-21] VITALS: Ht 165.1 cm; Wt 88.9 kg
[2022-05-21 16:15] VITALS: BP 135/45; TEMP 98.8
[2022-05-21 16:59] LABS: POTASSIUM 3.4 mmol/L (3.6-5.2)
--- NOTE | 2022-05-21 19:15 | NUR ---
PATIENT ADMITED TO ROOM FROM ER VIA STRETCHER. CLIENT NOTED WEAK AND RELUCTANT TO SPEAK. FAMILY AT BEDSIDE. FAMILY PROVIDED INFORMATION OF EVENTS LEADING TO ADMISSION. PERFORMED ASSESSMENT. CLEAR LUNG SOUNDS AUSCULTATED. APPLIED TELE MONITOR TO CLIENT. IV ACCESS NOTED 22G RAC. CLIENT STARTED CRYING AND SOBBING, INQUIRED TO THE NATURE, MS RAMOS STATED "I DON'T KNOW, JUST NOT RIGHT". ASKED IF SHE WAS IN PAIN. SHE SHOOK HER HEAD NO. CLIENT IS RESTING IN BED.
[2022-05-21 20:00] VITALS: BP 170/73; TEMP 99.9
--- NOTE | 2022-05-21 21:18 | NUR ---
NOTIFIED CLIENT OF GARCIA CATHETER ORDER. PER MD ORDER INSERTED 16FR GARCIA USING STERILE TECHNIQUE. INFLATED BLADDER BALLON 10ML OF SALINE. CLIENT TOLERATED PROCEDURE. CLIENT EXHIBITED CONFUSED BEHAVIOR, REORIENTED AND ASSURED CLIENT. BED EXIT ALARM SET.
[2022-05-21 21:35] VITALS: BP 170/73; TEMP 99.9; Ht 165.1 cm; Wt 88.9 kg
--- NOTE | 2022-05-21 23:54 | NUR ---
@ [address] STUART TO NOTIFY THAT CLIENT WOULD NOT TAKE MEDS BY MOUTH, CLIENT AWAKES TO NAME AND WOULD AGREE TO TAKE MEDS BUT WOULD NOT OPEN MOUTH TO TAKE MEDS. RECEIVED NEW ORDERS FROM . NOTIFIED MD OF 100.7 TEMP, IV TYLENOL ORDER RECEIVED.
[2022-05-22] VITALS (7 sets, daily range): BP systolic 115–154; BP diastolic 38–64; TEMP 98.8–102.5
--- NOTE | 2022-05-22 01:42 | NUR ---
TEMP 99.6 AFTER TYLENOL INFUSED
--- NOTE | 2022-05-22 04:10 | NUR ---
EARLIER IN THE MORING, CLIENT'S IV PUMP ALARMING DUE TO CLIENT CLENCHING ARM UP TO CHEST AND WOULD NOT RELAX ARM DOWN BY SIDE CAUSING THE IV CATHETER TO OCCLUDE. AFTER EXPLAINING AND EDUCATING CLIENT THROUGHOUT THE MORNING HOURS, CLIENT NOW IS MORE RECEPTIVE TO TREATMENT, AND MORE ALERT AND RESPONSIVE TO TEACHING.
[2022-05-22 05:50] LABS: PLATELET COUNT 162 K/uL (152-353)
--- NOTE | 2022-05-22 08:31 | NUR ---
PT AWAKE BUT CONFUSED. BREAKFAST FED TO PT BY TECH AND PT WOULD SPIT FOOD OUT OF MOUTH INTO PAPER TOWEL. ADMINISTERED TYLENOL IV ORDERED FOR DDJE=[id number]. AM MEDS ADMINISTERED ORDERED, CRUSHED AND PLACED IN APPLESAUCE AND PT TOLERATED WELL, COOPERATIVE AND DID NOT SPIT MED OUT. CONTINUE TO MONITOR.
--- NOTE | 2022-05-22 11:32 | NUR ---
PT AWAKE AND FAMILY AT BEDSIDE. WILL SMILE AND LAUGH, NO VERBAL FEEDBACK NOTED. NAD NOTED. CONTINUE TO MONITOR.
--- NOTE | 2022-05-22 14:41 | NUR ---
PT CLIMBED OUT OF BED AND PULLED IV SITE OUT OF RAC. PT HAD A BOWEL MOVEMENT ALL OVER FLOOR AND HERSELF. ASSISTED PT TO SHOWER AND WHILE PT SITTING IN SHOWER CHAIR, THIS NURSE AND [facility] TECH GAVE PT A BATH. PT ALERT BUT CONFUSED. DIFFICULTY FOLLOWING VERBAL INSTRUCTIONS. PER PCP(NARCISO) PT IS ONLY ALLOWED TO HAVE ONE VISITOR AT A TIME R/T WBC LEVEL LOW. CALLED NIECE/CAREGIVER JULIO AND NOTIFIED HER OF THE PCP ORDERS FOR HER TO PASS ALONG TO OTHER FAMILY MEMBERS. PT IN BED RESTING QUIETLY WITH BED ALARM ON.
--- NOTE | 2022-05-22 17:42 | NUR ---
NEW IV SITE OBTAINED BY PERFECTO GABRIEL TO LEFT WRIST WITH A 24 GA X3 ATTEMPTS. IVF INFUSING AT 80 ML/HR ORDERED OF NS. NO SWELLING OR REDNESS NOTED TO SITE. SRINATH GARCIA AT BEDSIDE. ADMINISTERED PO KCL ORDERED, CRUSHED AND IN VANILLA PUDDING AND PT TOLERATED WELL. CONTINUE TO MONITOR.
--- NOTE | 2022-05-22 18:34 | NUR ---
RECHECKED PTS TEMP, AT [phone], AT 1830 IDMC=[id number] CHECKED WITH A DIFFERENT THERMOMETER, AXILLARY.CONTINUE TO MONITOR, NO MEDS ADMINISTERED AT THIS TIME FOR TEMP
--- NOTE | 2022-05-22 21:00 | NUR ---
CRUSHED MEDS AND PLACED THEM IN PUDDING. PREVIOUS SHIFT REPORTED THAT CLIENT TOOK MEDS IN THIS MANNER WITH NO DIFFICULTY. CLIENT TOOK ONE BITE HOWEVER WOULD NOT TAKE ANY MORE MEDS. PURSED LIPS TOGETHER AND WOULD NOT COOPERATE.
[2022-05-23] VITALS (8 sets, daily range): BP systolic 126–155; BP diastolic 39–54; TEMP 98.1–102.7
--- NOTE | 2022-05-23 00:10 | NUR ---
PATIENT TEMP AT 0000 VITAL SIGNS 102.7. REMOVED BLANKETS, LEAVING ONLY SHEET. PLACED COOL RAG ON FORHEAD. ADMINISTERED TYLENOL SEE DEC.
--- NOTE | 2022-05-23 01:30 | NUR ---
PT TEMP 99.9 AXILLARY. CONTINUED TO LEAVE BLANKET OFF OF CLIENT, SHEET ONLY.
--- NOTE | 2022-05-23 05:01 | NUR ---
PATIENT CALLED COMPOSITOR APPRENTICE LIGHT BUT DID NOT SAY ANYTHING WHEN ANSWERED, WHEN THIS NURSE GOES INTO ROOM CLIENT STATES THAT SHE NEEDS TO USE THE BATHROOM. CLIENT HAD ALREADY HAD A BM IN BRIEF. CLEANED CLIENT AND PROVIDED CATHETER CARE. APPLIED CLEAN BRIEF. BED EXIT ALARM SET.
--- NOTE | 2022-05-23 10:53 | NUR ---
Unable to add data left out during assessment so adding it to the note. Patient fell asleep on and off agian during assessment. Respirations even and unlabored. metorpolol held due to low heart rate and low blood pressure. dilatazem held based on parameters. bilateral edema in lower extremeties. 1+ pitting edema to right foot. Patient son in room visiting at this time.
--- NOTE | 2022-05-23 13:18 | NUR ---
DR STUART HERE AT THIS TIME.
[2022-05-23 13:52] LABS: PLATELET COUNT 154 K/uL (152-353)
[2022-05-23 14:03] LABS: POTASSIUM 2.5 mmol/L (3.6-5.2)
--- NOTE | 2022-05-23 15:40 | NUR ---
Dr. Borges called and updated on patient lab values for today. Dr. Borges notified patient BNP is elevated to 2630. Telephone orders per Dr. Gonzalez to decrease patients fluids to 50 mls/hr, continue daily weights and lasix read back and verified. orders in computer. will contimue to monitor patient.
--- NOTE | 2022-05-23 19:30 | NUR ---
PATIENT RESTING QUIETLY WATCHING TV AND VISITING WITH HER SON. NO ACUTE DISTRESS NOTED AT THIS TIME AND PATIENT DENIES ANY COMPLAINTS OR NEEDS AT THIS TIME. IV SITE 24G TO RIGHT WRIST CLEAN DRY AND INTACT AND HAS NORMAL SALINE INFUSING AT 50ML/HR. CALL LIGHT WITHIN REACH. WILL CONTINUE TO MONITOR.
--- NOTE | 2022-05-23 19:40 | NUR ---
RECEIVED A CALL FROM DR. STUART CHECKING ON PATIENT AND UPDATE WAS GIVEN. PATIENTS AM LABS FOR TODAY POTASSIUM LEVEL WAS AT 2.[address] STUART ORDERED KRIDER OF 20MEQ TO BE GIVEN TONIGHT AND ORDERS WERE WRITTEN AND FAXED TO [facility]. ALSO DR. STUART WANTING TO MAKE SURE THAT AM LABS WERE ORDERED FOR TOMORROW AM (05/24/2022) AND PLEASE CALL THEM TO HER AND I ASSURED HER I WOULD PASS THIS ON TO HER NURSE FOR DAY SHIFT IN THE AM. NO FURTHER ORDERS OR INSTRUCTIONS FROM DR. STUART AT THIS TIME.
--- NOTE | 2022-05-23 20:15 | NUR ---
NOTIFIED PER PCT WORKING THIS SHIFT THAT THIS PATIENT HAS A 101.5 ORAL TEMPERATURE SO I CALLED DR. STUART AT THIS TIME TO INFORM HER OF THIS AND ORDERS WERE GIVEN TO GIVE A ONE TIME DOSE OF LEVAQUIN 500MG IV TONIGHT, ORDERS [facility]ERE [facility] AND SENT TO [facility] TO PROFILE MEDS.
--- NOTE | 2022-05-23 22:31 | NUR ---
RECHECKED PATIENTS TEMPERATURE AFTER IV TYLENOL AND HER TEMPERATURE IS NOW 98.8 ORALLY AND PATIENT IS RESTING WITH HER EYES CLOSED AND DENIES ANY COMPLAINTS AT THIS TIME. CALL LIGHT WITHIN REACH. WILL CONTINUE TO MONITOR.
--- NOTE | 2022-05-24 01:14 | NUR ---
PATIENT REQUESTED TO GET UP TO [facility] FOR A BOWEL MOVEMENT. PATIENT ASSISTED BY MYSELF AND PATINA, PCT WITHOUT DIFFICULTY. PATIENT TOLERATED GETTING UP AND BACK TO BED VERY WELL. PATIENT HAD A LARGE LOOSE STOOL. PATIENT CLEANED WELL AND ASSISTED BACK TO BED. NO COMPLAINTS OR REQUESTS AT THIS TIME AND NO ACUTE DISTRESS NOTED AT THIS TIME. CALL LIGHT WITHIN REACH AND BED ALARM SET FOR SAFETY. WILL CONTINUE TO MONITOR.
--- NOTE | 2022-05-24 03:15 | NUR ---
PATIENT RESTING QUIETLY WITH HER EYES CLOSED. NO ACUTE DISTRESS NOTED AT THIS TIME. CALL LIGHT WITHIN REACH. WILL CONTINUE TO MONITOR.
[2022-05-24 04:00] VITALS: BP 145/62; TEMP 98.1
--- NOTE | 2022-05-24 05:15 | NUR ---
BED ALARM GOING OFF AND PATIENT ATTEMPTING TO GET UP ON THE BEDSIDE COMMODE STATING SHE HAD TO HAVE A BOWEL MOVEMENT. PATIENT ALREADY SAT DOWN ON THE BEDSIDE COMMODE WITH BRIEF ON. PATIENT DID HAVE ANOTHER MODERATE SIZE LOOSE BOWEL MOVEMENT. PATIENT CLEANED UP, NEW BRIEF APPLIED AND ASSISTED PATIENT BACK TO BED. PATIENT TOLERATED WELL. NO ACUTE DISTRESS NOTED AT THIS TIME. CALL LIGHT WITHIN REACH. BED ALARM ON FOR SAFETY. WILL CONTINUE TO MONITOR.
[2022-05-24 06:12] LABS: POTASSIUM 2.7 mmol/L (3.6-5.2)
[2022-05-24 06:53] LABS: PLATELET COUNT 147 K/uL (152-353)
--- NOTE | 2022-05-24 07:25 | NUR ---
REC'D PT RESTING IN BED. NO ACUTE DISTRESS NOTED. PT DENIED ANY CO AT THIS TIME. PT MUCH MORE ALERT TODAY WHEN COMPARED TO 05/23/22. IVF'S OF NS INFUSING VIA PUMP AT 50ML/HR INTO 22G INTO RT WRIST. WILL CONT TO MONITOR.
[2022-05-24 08:00] VITALS: BP 137/50; TEMP 99
--- NOTE | 2022-05-24 08:45 | NUR ---
DR STUART CALLED AND ASKED ABOUT LABS AND ELECTROLYTE PROTOCOL . ALL LABS REVIEWED VIA PHONE AND NEW ORDERS REC'D TO REPLACE POTASSIUM AND MAGNESIUM VIA ELECTROLYTE PROTOCOL. PT DID NOT HAVE TEMP THIS AM TEMP AT 0800 99. PT SITTING UP IN BED EATING BREAKFAST NO ACUTE DUSTRESS NOTED. WILL CONT TO MONITOR,.
--- NOTE | 2022-05-24 09:00 | NUR ---
AYSHA FROM THERAPY IN ROOM AT THIS TIME PERFORMING ALLIE
--- NOTE | 2022-05-24 09:22 | NUR ---
NEW ORDERS REC'D TO STOP LOVENOX AND RESTART PT'S HOME MEDS ELIQUIS 5MG TAB PO BID ORDERS WRITTEN AND NOTED
--- NOTE | 2022-05-24 10:00 | NUR ---
MICHAEL FROM THERAPY IN ROOM PERFORMING EVAUL PER MD ORDERS. PT UP TO SINK IN ROOM WITH MIN ASSISTANCE FROM PT. GAIT BELT IN USE FROM THERAPY. PT TOELRATING AMBUALTION IN ROOM WELL. PT BRUSHED HER TEETH ALONE WITH THERAPY AT HER SIDE AT THE SINK. PT THEN ASSISTED TO RECLINER AND DID WELL NO PROBLEMS. PER THERAPY PT WAS ASSISTED UP TO BSC PER THERAPY DURING SCREENING AND EVAUL. PT HAD LOOSE BM. AFTER PT WAS ASSITED UP TO RECLINER PT VOMITED X 1. PT HAD DRANK A LARGE BOTTLE OF WATER DURING THERAPY EVAUL IN ROOM AT PT'S REQUEST. PT DENIES ANY PROBLEMS OR PAIN. PT REC'D BATH AND BED LINENS CHANGED AT THIS TIME. PT ASSITED BACK TO BED FAMILY IN ROOM AT THIS TIME
[2022-05-24 12:00] VITALS: BP 145/61; TEMP 98.7
--- NOTE | 2022-05-24 12:43 | NUR ---
DR STUART HERE AT THIS TIME. IN ROOM WITH PT
--- NOTE | 2022-05-24 13:00 | NUR ---
DR STUART GAVE NEW ORDERS TO DC TEL AT THIS TIME.
[2022-05-24 16:00] VITALS: BP 142/68; TEMP 98.6
--- NOTE | 2022-05-24 16:20 | NUR ---
PT CALLED FOR ASSISTANCE TO BSC. FAMILY MEMEBER AT BS. PT ASSITED UP TO BSC PER STAFF X 1 PHYSICAL ASSIST. PT DID HAVE SMALL LOOSE STOOL AT THIS TIME. GARCIA CATH INTACT TO BS.
--- NOTE | 2022-05-24 17:00 | NUR ---
PT'S FAMILY BROUGHT FOOD IN AT THIS TIME. PT CONSUMED SOME FLOUDER AND SMALL HELPING OF COLESLAW. PT TOELRATED WELL NO MORE EPISODES OF VOMITING THIS SHIFT. FAMILY MEMEBER REMAINS AT BS. PT RESTING AT THIS TIME
--- NOTE | 2022-05-24 19:48 | NUR ---
PATIENT RESTING QUIETLY WATCHING TV AND ALERT AND ORIENTED AT THIS TIME. PATIENT SMILING NOW AND STATES "I AM FEELING BETTER!'". PATIENT HAS TWO IV SITES A 24G IN HER LEFT WRIST WHICH IS SALINE LOCKED AT THIS TIME AND A 22G IN HER RIGHT FOREARM WHICH CURRENTLY HAS NORMAL SALINE INFUSING AT 30 ML/HR AND A KRIDER OF 40MEQ/500 MLS OF NORMAL SALINE AT 100 ML/HR. AFTER POTASSIUM IS COMPLETED PATIENT WILL ONLY HAVE THE NORMAL SALINE AT 30ML/HR. FOR NOW AND ORDER PER DR. STUART IS IN HER CHART. PATIENT HAS INDWELLING GARCIA CATHETER TO BEDSIDE DRAINAGE AND ORDERS TO ATTEMPT BLADDER TRAINING TONIGHT DURING THIS SHIFT. PATIENT DENIES ANY COMPLAINTS AND OR REQUESTS AT THIS TIME AND PATIENT REMINDED HOW TO CALL FOR ASSISTANCE IF SHE NEEDS TO GET UP TO BEDSIDE COMMODE OR ANY OTHER REQUESTS OR NEEDS. PATIENT VERBALIZES UNDERSTANDING OF HOW TO USE CALL SYSTEM. CALL LIGHT WITHIN REACH. WILL CONTINUE TO MONITOR.
[2022-05-24 20:00] VITALS: BP 143/67; TEMP 99.3
--- NOTE | 2022-05-24 21:00 | NUR ---
PM MEDS CRUSHED AND GIVEN TO PATIENT WITH APPLESAUCE AND PATIENT TOLERATED THEM WELL. ASSISTED PATIENT TO DRINK DIET COKE AND SHE DID DRINK TWO SMALL CUPS OF DIET COKE WITHOUT DIFFICULTY. PATIENT STATES HER APPETITE IS GETTING BETTER AND SHE IS "FEELING BETTER EVERY DAY". CALL LIGHT WITHIN REACH. WILL CONTINUE TO MONITOR. GARCIA TUBING CLAMPED AND PATIENT INSTRUCTED TO CALL ME WHEN SHE FEELS LIKE SHE HAS TO URINATE AND PATIENT VERBALIZES UNDERSTANDING. WILL CONTINUE TO MONITOR.
--- NOTE | 2022-05-24 21:30 | NUR ---
PATIENT CALLED FOR ASSISTANCE TO BEDSIDE COMMODE. PATIENT IS DOING VERY WELL GETTING OUT OF THE BED AND ON TO BSC AND BACK TO BED WITH LITTLE ASSISTANCE FROM STAFF. PATIENT STATES SHE IS "GETTING HER STRENGTH BACK SOME". PATIENT HAS A LARGE WATERY BROWN STOOL AND STATES HER "STOMACH IS TORE UP" AND THAT THIS TYPE BOWEL MOVEMENT ISNT NORMAL FOR HER. WILL REPORT THIS TO DR. STUART. PATIENT DENIES ANY OTHER COMPLAINTS AT THIS TIME. WILL CONTINUE TO MONITOR.
--- NOTE | 2022-05-24 22:30 | NUR ---
PATIENT IS RESTING QUIETLY WITH HER EYES CLOSED AT THIS TIME. GARCIA CLAMP IS RELEASED DUE TO PATIENT NOT CALLING IN LAST COUPLE OF HOURS AND SHE WAS GIVEN A DOSE OF LASIX 20MG IV EARLIER. URINE NOTED TO FLOW INTO BAG AT THIS TIME AND GARCIA TUBING CLAMPED AGAIN AND PATIENT REMINDED TO PLEASE CALL ME IF SHE HAS THE SENSATION OF NEEDING TO VOID AND SHE VOICES UNDERSTANDING AT THIS TIME. WILL MONITOR.
[2022-05-25] VITALS: BP 160/64; TEMP 98.6
--- NOTE | 2022-05-25 00:30 | NUR ---
PATIENT CONTINUES TO REST WITH HER EYES CLOSED AND NO ACUTE DISTRESS NOTED AT THIS TIME. GARCIA TUBING RELEASED AGAIN AND PATIENT DENIES HAVING THE SENSATION AT ALL SO FAR THIS SHIFT. PATIENT AGAIN EDUCATED AND ENCOURAGED TO CALL ME IF SHE FEELS THE URGE TO VOID. PATIENT VERBALIZES SHE WILL. CALL LIGHT WITHIN REACH. WILL CONTINUE TO MONITOR.
--- NOTE | 2022-05-25 01:40 | NUR ---
PATIENT UP TO BSC AGAIN AND HAS A LARGE WATERY BROWN STOOL, PATIENT ASSISTED BACK TO BED AND CALL LIGHT WITHIN REACH. WILL CONTINUE TO MONITOR.
--- NOTE | 2022-05-25 02:15 | NUR ---
GARCIA TUBING UNCLAMPED AGAIN AND ALLOWED TO DRAIN INTO BEDSIDE BAG DUE TO PATIENT STILL DENYING ANY SENSATION OF NEEDING TO VOID. AFTER APPROXIMATELY FIVE MINUTES TUBING CALMPED AGAIN AND PATIENT ONCE AGAIN REMINDED TO CALL. WILL CONTINUE TO MONITOR. BED ALARM ON FOR SAFETY.
[2022-05-25 04:00] VITALS: BP 148/58; TEMP 98.9
--- NOTE | 2022-05-25 04:25 | NUR ---
PATIENT RESTING WITH HER EYES CLOSED, RESPIRATIONS EVEN AND NON LABORED AND IN NO ACUTE DISTRESS AT THIS TIME. GARCIA UNCLAMPED AT THIS TIME. PATIENT IS NOT FEELING THE SENSATION TO VOID OR JUST ISNT ALERTING STAFF AT ALL. NOT ONE TIME THIS SHIFT OF THIS TIME. PATIENT EDUCATED ONCE MORE ON WHY WE NEED HER TO LET US KNOW SO WE CAN DC THE GARCIA CATHETER AND PATIENT AGREES, VERBALIZES UNDERSTANDING WHENSTAFF SPEAKING WITH HER BUT DOESNT CALL. WILL CONTINUE TO MONITOR AND CONTINUE TO EDUCATE AND ENCOURAGE HER TO LET US KNOW.
[2022-05-25 05:05] LABS: POTASSIUM 2.8 mmol/L (3.6-5.2)
[2022-05-25 05:17] LABS: PLATELET COUNT 104 K/uL (152-353)
--- NOTE | 2022-05-25 06:10 | NUR ---
PATIENT UP TO BSC TO HAVE ANOTHER LARGE WATERY STOOL, ASSISTED BACK TO BED AND SAMPLE COLLECTED TO SEND TO LAB FOR STOOL STUDIES. CALL LIGHT WITHIN REACH. WILL CONTINUE TO MONITOR.
[2022-05-25 08:00] VITALS: BP 100/63; TEMP 98.2
--- NOTE | 2022-05-25 09:30 | NUR ---
SPOKE WITH REGARDING MEDICATIONS AND NEW ORDERS WERE GIVEN FOR ADDITIONAL LABS: IRON, TIBC AND FERRITIN - TO USE AM LABS. MED ORDER GIVEN FOR K-RIDER 40MEQ X1 AND INCREASE PO K+ TO 40 MEQ T.I.D LIQUID SUSPENSION. GIVE LEVAQUIN 500MG IV X1 DOSE NOW. ORDER FAXED TO PHARMACY.
[2022-05-25 12:08] VITALS: BP 106/69; TEMP 97.9
--- NOTE | 2022-05-25 12:34 | NUR ---
PT ALERT AND ORIENTED TO PERSON AND PLACE. IV SITES TO LEFT WRIST AND RFA INTACT. IVF OF NS INFUSING AT 30 ML/HR ORDERED TO RFA SITE. NO SWELLING OR REDNESS NOTED. ADMINISTERED AM MEDS ORDERED, CRUSHED AND IN APPLESAUCE AND PT TOLERATED WELL WITH NO DIFFICULTY SWALLOWING. PT ABLE TO FEED HERSELF AND ALERTS STAFF BY USING THE CALL LIGHT WHEN SHE HAS TO HAVE USE THE BEDSIDE COMMODE TO HAVE A BM, NOT CONTINENT OF WHEN SHE HAS TO VOID. GARCIA CATHETER D/C'D AT 0735, BLADDER TRAINING STARTED ON 7P=7A SHIFT. NAD NOTED. DENIES ANY PAIN/DISCOMFORT. GIVES LOGICAL VERBAL FEEDBACK. SRINATH GARCIA AT BEDSIDE. AMBULATES WITH A STEADY GAIT BUT UNBALANCED, ASSISTANCE NEEDED. CONTINUE TO MONITOR.
--- NOTE | 2022-05-25 14:41 | NUR ---
Patients grandson Shabbir requested to speak with proposal writer. He was wanting to know if home health could see his grandmother more often or if hospice would be better for her. tube trailer filler spoke with home [facility] and they gave information on [facility] home health that has sitters that some insurances pay for. Hazardous Substances Scientist passed along Harish contact information to then and spoke with Shabbir and his family and they are waiting for her call. Hazardous Substances Scientist also notified [facility] that patient will need to continue OT/PT services once discharged.
[2022-05-25 16:00] VITALS: BP 171/79; TEMP 98.9
--- NOTE | 2022-05-25 16:15 | NUR ---
PT CRYING AND TEARFUL, C/O IV KCL "BURNING" RIGHT ARM AT IV SITE. ASSESSED IV SITE AND SITE WAS INFILTRATED, NO REDNESS BUT MINIMUM SWELLING NOTED. D/C'D IV SITE TO RFA AND APPLIED COLD COMPRESS. ENCOURAGED AND COMFORTED PT. PCP ASSESSED PT AT BEDSIDE AFTER LUNCH. PT WILL BE DISCHARGED TO GO HOME IN AM PENDING STOOL CULTURE RESULTS. CONTINUES TO HAVE WATERY, GREENISH BM X3 TODAY. PCP OBSERVED PTS BM FROM MEASURING HAT IN TOILET. OCCULT STOOL SAMPLE WAS NEGATIVE AWAITING OTHER RESULTS. CONTINUE TO MONITOR.
--- NOTE | 2022-05-25 16:59 | NUR ---
JULIO BEAVERS AT BEDSIDE. PT FEEDING HERSELF DINNER. PT REQUEST TO TAKE A SHOWER AFTER DINNER. CONTINUE TO MONITOR.
--- NOTE | 2022-05-25 18:17 | NUR ---
NSG STAFF ASSISTED PT TO BEDSIDE COMMODE. STEADY GAIT, UNBALANCED. CONTINUES TO HAVE WATERY, BROWNISH STOOL X4 TODAY. NSG STAFF SUPERVISED AND PROVIDED LIMITED ASSISTANCE WHILE PT TOOK A SHOWER. CLEAR AND LOGICAL SPEECH. ALERT AND ORIENTED X3. NAD NOTED. NO CRYING OR TEARFULNESS NOTED. PT SMILING AND TALKING TO STAFF. PT STATES "WHAT DID YOU DO WITH MY BRACELETS THAT I HAD ON." REPLIED TO PT THAT BRACELETS WERE PLACED WITH HER PERSONAL BELONGINGS IN A BAG. PER PCP(NARCISO) D/C IVF AND PT IS TO REMAIN SALINE LOCK TO LEFT WRIST WITH 24 GA. OBTAIN POTASSIUM LEVEL X1 NOW PER PCP, DO NOT ORDER MORNING LABS. POTASSIUM LEVEL=3.4 @ 1755. CONTINUE TO MONITOR.
--- NOTE | 2022-05-25 19:50 | NUR ---
PT AWAKE LAYING IN BED WITH NO S/S OF PAIN OR DISTRESS NOTED, DENIES ANY PROBLEMS OR NEEDS, IV LOCK INTACT TO L WRIST, RESP RATE NONLABORED, LUNGS CLEAR, SKIN WARM AND DRY, BS+, RADIAL PULSES INTACT/EQUAL. ENCOURAGED TO CALL NEEDED, RAILS UP, BED IN LOW POSITION, CALL LIGHT IN REACH.
[2022-05-25 20:00] VITALS: BP 137/57; TEMP 99.1
--- NOTE | 2022-05-25 21:24 | NUR ---
PT AWAKE GIVEN MEDICATIONS CRUSHED IN APPLE SAUCE WITH NO PROBLEMS. WILL MONITOR CLOSELY.
--- NOTE | 2022-05-25 22:05 | NUR ---
SPOKE WITH DR. STUART OVER THE PHONE ABOUT PT'S IV SITE NOT WORKING(PT GOING HOME IN THE MORNING) AND UNABLE TO GIVE DOSE OF LASIX UNLESS IV IS RESTARTED. NEW ORDER FROM DR. STUART TO GIVE LASIX 20MG PO X 1 DOSE NOW(SINCE UNABLE TO GIVE IV DOSE). T.O. R&V DR. Samuel STUART/BRIELLE JEAN RN.
--- NOTE | 2022-05-25 22:48 | NUR ---
PT CALLED SANITARY ENGINEERING TEACHER LIGHT FOR ASSIST TO GO TO BSC. PT ASSISTED TO AND FROM BSC X 1 PERSON ASSIST MINIMAL ASSIST. PT TOLERATED WITH SOME WEAKNESS. BACK IN BED WITH NO ACUTE DISTRESS NOTED, WILL MONITOR, RAILS UP, BED IN LOW POSITION, CALL LIGHT IN REACH, BED ALARM ON.
[2022-05-26] VITALS: BP 131/58; TEMP 98.9
--- NOTE | 2022-05-26 00:05 | NUR ---
DR. STUART CALLED TO CHECK ON PT. POTASSIUM LEVEL AFTER PT GIVEN KCL TODAY GIVEN TO PER REQUEST RESULT 3.4. ALSO INFORMED BY THAT SHE WANTS PT TO HAVE DOSE OF ROBITUSSIN NOW FOR COUGH THAT PT C/O EARLIER TODAY. SPECIAL OFFICER HAS HEARD PT COUGH ONCE EARLIER IN SHIFT.
--- NOTE | 2022-05-26 00:15 | NUR ---
SENT FAX TO [facility] DUE TO SOME OF PT'S MEDS NOT PROFILED INCLUDING ROBITUSSIN.
--- NOTE | 2022-05-26 02:00 | NUR ---
PT RESTING IN BED WITH EYES CLOSED, NO S/S OF PAIN OR DISTRESS NOTED, RAILS UP X3, BED IN LOW POSITION WITH ALARM ON, CALL LIGHT IN REACH.
[2022-05-26 04:00] VITALS: BP 138/61; TEMP 98.3
--- NOTE | 2022-05-26 04:15 | NUR ---
RESTING WITH EYES CLOSED IN BED, NO S/S OF PAIN OR DISTRESS NOTED, WILL MONITOR CLOSELY, RAILS UP, BED IN LOW POSITION WITH ALARM ON, CALL LIGHT IN REACH.
--- NOTE | 2022-05-26 07:40 | NUR ---
PT ALERT AND ORIENTED X4. NAD NOTED. DENIES ANY PAIN/DISCOMFORT. PT HAS NO ACTIVE SITE. POSSIBLE DISCHARGE THIS AM. PT ANXIOUS TO GO HOME. CONTINUE TO MONITOR.
[2022-05-26 08:05] VITALS: BP 129/52; TEMP 98.2
--- NOTE | 2022-05-26 10:44 | NUR ---
PT DISCHARGED HOME PER PCP. ADMINISTERED AM MEDS ORDERED AND ONE TIME DOSE OF LASIX 20 MG PO. PT TOLERATED WELL, MEDS WERE NOT CRUSHED, PT TOOK MEDS WHOLE WITH NO DIFFICULTY SWALLOWING. ASSESSED BY PCP AT BEDSIDE. INFORMED JULIO BEAVERS TO CALL PCP OFFICE ON SATURDAY TO SCHEDULE ONE WEEK F/U APPOINTMENT PER PCP. DISCHARGE INSTRUCTIONS GIVEN TO PT AND NIECE AND BOTH VERBALIZED UNDERSTANDING OF INSTRUCTIONS. [facility] FILLED NEW PRESCRIPTION FOR LEVAQUIN, ROBITUSSIN,POTASSIUM AND LASIX, OTHER HOME MEDS PRESCRIBED [facility] STATED THAT PT HAD "PLENTY AT HOME." INFORMED JULIO BEAVERS AND PT THAT PAIN MED, OXYCODONE WAS CALLED IN TO [facility] BY PCP, NIMESH STATED "SHE HAS PLENTY OF THAT AT HOME." PT ED TO FAMILY AND PT THAT PT SHOULD USE INCENTIVE SPIROMETER 2-3 HOURS A DAY AND DEMONSTRATED CORRECT USE OF IS TO PT AND FAMILY. NEW MEDS FILLED BY [facility] GIVEN TO FAMILY. PT IS TO DRINK FLUIDS TO REPLACE ELECTROLYTE IMBALANCE AND KEEP HYDRATED, EX:BODY ARMOUR WITH LESS SUGAR. PT TRANSPORTED OUT OF FACILITY AT 1042 VIA WHEELCHAIR.
--- NOTE | 2022-05-29 11:59 | NUR ---
Gas Engine Mechanic following up with patient and to see if the company [employer] which we had discussed prior to discharge had made contact with them. He said that he had not heard from them. Gas Engine Mechanic called [employer] and was transferred back to [facility]. She said that she had called them and left a message and was awaiting his return call. She also said that sometimes they show up as spam and that could be the reason the family did not answer. Gas Engine Mechanic notified the patient and her family of the above and gave them [facility]'s number to call her.
== END 2022-05-26 10:40 | disposition home or self-care (01) | DRG 292 ==
LOC: ED 16:12 → MED/SURG 18:30 → UNDODEPER 05-23 19:15 → MED/SURG 05-26 10:40
PROVIDERS: Emergency Medicine Emergency Medical Services; ADMIT Family Medicine; ATTEND Family Medicine
DX: I13.0 Hypertensive heart and chronic kidney disease with heart failure and stage 1 through stage 4 chronic kidney disease, or unspecified chronic kidney disease (principal); N18.4 Chronic kidney disease, stage 4 (severe); N17.8 Other acute kidney failure; C90.01 Multiple myeloma in remission; I50.9 Heart failure, unspecified; R41.82 Altered mental status, unspecified; E86.0 Dehydration; R63.0 Anorexia; R60.1 Generalized edema; E87.6 Hypokalemia; D72.818 Other decreased white blood cell count; K21.9 Gastro-esophageal reflux disease without esophagitis; M15.8 Other polyosteoarthritis; M81.8 Other osteoporosis without current pathological fracture; E83.42 Hypomagnesemia
CPT/HCPCS: 36415; 80048; 80053; 81002; 82272; 82728; 83540; 83550; 83605; 83735; 83880; 84100; 84132; 84484; 85007; 85027; 87015; 87040; 87045; 87324; 87328; 87329; 87449; 87635; 87899; 93005; 99284; J0132; J1650; J1940; J1956; J3475; J3480; U0003

== ENCOUNTER 2022-06-19 10:31 | Outpatient (CLI) | payer OTHER | END 2022-06-19 19:00 | disposition home or self-care (01) | LOC: RAD 10:31 | PROVIDERS: ATTEND Family Medicine | DX: M25.512 Pain in left shoulder (principal); M54.59 Other low back pain ==

== ENCOUNTER 2023-03-11 08:52 | Outpatient (CLI) | payer OTHER | END 2023-03-11 20:09 | disposition home or self-care (01) | LOC: MAMMO 08:52 | PROVIDERS: ATTEND Physician Assistant Medical | DX: C90.00 Multiple myeloma not having achieved remission (principal); Z12.31 Encounter for screening mammogram for malignant neoplasm of breast ==

== ENCOUNTER 2023-06-05 12:19 | Outpatient (CLI) | payer OTHER ==
[2023-06-05 12:46] LABS: POTASSIUM 3.9 mmol/L (3.6-5.2)
[2023-06-05 12:49] LABS: PLATELET COUNT 151 K/uL (152-353)
== END 2023-06-05 19:48 | disposition home or self-care (01) ==
LOC: LAB 12:19
PROVIDERS: ATTEND Internal Medicine
DX: I10 Essential (primary) hypertension (principal); Z79.899 Other long term (current) drug therapy
CPT/HCPCS: 80053; 80061; 81002; 83735; 84439; 84443; 85027